=== PATIENT | female | born 1980 | race Caucasian/White ===

== ENCOUNTER 2023-04-12 15:13 | Outpatient (CLI) | payer BC, SELFPAY ==
--- NOTE | 2023-04-12 15:20 | CRLHL7_ITS ---
For Patients: As a result of the Century Cures Act, medical imaging exams and procedure reports are released immediately into your electronic medical record. You may view this report before your referring provider. If you have questions, please contact your health care provider. BILATERAL DIGITAL SCREENING MAMMOGRAM WITH TOMOSYNTHESIS AND COMPUTER-AIDED DETECTION CLINICAL HISTORY: Routine screening exam. COMPARISON: None TECHNIQUE: Digital mammogram in CC and MLO projections including computer-aided detection (CAD). Tomosynthesis utilized. BREAST COMPOSITION: There are areas of scattered fibroglandular density. FINDINGS: RIGHT Breast: Nodular density is present within the lower outer quadrant 7 cm from the nipple. LEFT Breast: No suspicious findings. IMPRESSION: RIGHT breast asymmetry/mass. RECOMMENDATIONS: Additional mammographic views of the RIGHT breast including 3D spot compression CC/MLO. RIGHT breast ultrasound may also be required. BI-RADS Category 0: Incomplete: Need Additional Imaging Evaluation and/or Prior Mammograms for Comparison [facility] will contact the patient for follow-up. A lay language report of this examination will be provided to the patient. Dictated by Servando Proctor MD @ 04/13/2023 9:24:30 AM jj/Dictated by: Servando Proctor MD @ 04/13/2023 9:24:00 AM (Electronically Signed)
== END 2023-04-12 15:14 | disposition home or self-care (01) ==
LOC: MAMMO 15:14
PROVIDERS: PCP Nurse Practitioner Family; Visit Provider Nurse Practitioner Family
DX: Z12.31 Encounter for screening mammogram for malignant neoplasm of breast (principal); N63.10 Unspecified lump in the right breast, unspecified quadrant
CPT/HCPCS: 77063; 77067

== ENCOUNTER 2023-04-17 09:34 | Outpatient (CLI) | payer BC, SELFPAY ==
--- NOTE | 2023-04-17 09:45 | CRLHL7_ITS ---
For Patients: As a result of the Cures Act, medical imaging exams and procedure reports are released immediately into your electronic medical record. You may view this report before your referring provider. If you have questions, please contact your health care provider. DIGITAL DIAGNOSTIC RIGHT MAMMOGRAM USING TOMOSYNTHESIS AND COMPUTER-AIDED DETECTION RIGHT BREAST ULTRASOUND CLINICAL HISTORY: RIGHT breast mass/asymmetry. COMPARISON: 04/12/23. TECHNIQUE: Digital RIGHT mammogram in two projections. Tomosynthesis and CAD utilized. Real-time ultrasound imaging of RIGHT breast with imaging documentation. BREAST COMPOSITION: There are areas of scattered fibroglandular density. FINDINGS: 3D CC/MLO spot compression RIGHT breast mammogram images submitted. Persistent nodular density noted without architectural distortion. No suspicious calcifications. Targeted RIGHT breast ultrasound 7 o`clock 7 cm from the nipple performed. Circumscribed hypoechoic nodule performed at mid depth measuring 11 x 6 x 6 cm. IMPRESSION: Indeterminate solid nodule RIGHT breast 7 o`clock 7 cm from the nipple measuring 11 mm. RECOMMENDATIONS: Ultrasound-guided biopsy. Results and recommendations discussed with the patient. BI-RADS Category 4: Suspicious A lay language report of this examination will be provided to the patient. Dictated by Servando Proctor MD @ 04/18/2023 1:04:40 PM safiaj/Dictated by: Servando Proctor MD @ 04/18/2023 1:04:00 PM (Electronically Signed)
--- NOTE | 2023-04-17 10:15 | CRLHL7_ITS ---
For Patients: As a result of the Cures Act, medical imaging exams and procedure reports are released immediately into your electronic medical record. You may view this report before your referring provider. If you have questions, please contact your health care provider. PLEASE SEE DIGITAL DIAGNOSTIC RIGHT MAMMOGRAM PERFORMED SAME DAY CRL:[email or web address] daily/Dictated by: Servando Proctor MD @ 04/18/2023 1:04:00 PM (Electronically Signed)
== END 2023-04-17 09:35 | disposition home or self-care (01) ==
LOC: MAMMO 09:34
PROVIDERS: PCP Nurse Practitioner Family; Visit Provider Nurse Practitioner Family
DX: N63.10 Unspecified lump in the right breast, unspecified quadrant (principal); R92.8 Other abnormal and inconclusive findings on diagnostic imaging of breast
CPT/HCPCS: 76642; 77065; G0279

== ENCOUNTER 2023-04-23 10:09 | Outpatient (CLI) | payer BC, SELFPAY ==
--- NOTE | 2023-04-23 10:15 | CRLHL7_ITS ---
For Patients: As a result of the Century Cures Act, medical imaging exams and procedure reports are released immediately into your electronic medical record. You may view this report before your referring provider. If you have questions, please contact your health care provider. ULTRASOUND-GUIDED BREAST BIOPSY AND POST-BIOPSY DIGITAL MAMMOGRAM FOR BIOPSY MARKER PLACEMENT CLINICAL HISTORY: Indeterminate solid nodule RIGHT breast. COMPARISON STUDIES: 04/17/2023. TECHNIQUE: Real-time ultrasound with image documentation was used for targeting the breast lesion. Core biopsy specimens were obtained using an automated gun with an 18-gauge biopsy needle. Post-biopsy CC and ML digital mammograms were obtained to document position of the biopsy marker. CONSENT and TIME OUT: The procedure, risks, and alternatives were explained to the patient and a consent was signed. Tyler Protocol was followed including pre-procedure verification that relevant information/documentation was available, reviewed and properly matched to the patient; consent accurate and complete; and equipment and supplies available. Time Out was conducted just prior to starting procedure to verify the four required elements: patient identity, correct side/site marked (if applicable), procedure, relevant images/results properly labeled and displayed (if applicable). PROCEDURE: The patient was positioned supine on the ultrasound table. The breast was prepped with ChloraPrep. 5 cc of 1 percent lidocaine used for local anesthesia. Core samples were obtained. A sterile metal biopsy clip was placed percutaneously to jane the lesion position within the breast. The specimens were placed in 10% formalin and sent to the pathology department. Pressure was held on the biopsy site until all bleeding subsided. The skin incision was closed with Steri-Strips. An ice pack was positioned over the biopsy site. Post-biopsy instructions were reviewed with the patient, and a written copy was given to her. LATERALITY: RIGHT breast. LESION: Hypoechoic solid nodule measuring 1.1 x 0.6 x 0.6 cm at 7 o`clock 7 cm from the nipple. SUSPICION FOR MALIGNANCY: Moderate. NUMBER OF SAMPLES: 5. BIOPSY CLIP SHAPE: Oval. PROXIMITY OF CLIP TO TARGET: Within the lesion. IMPRESSION: Ultrasound-guided breast biopsy. When the pathology report is available, an addendum to this report will be made. 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 This is concordant. Resume annual BILATERAL screening mammography. Dictated by: Servando Proctor MD @04/26/2023 10:36:14 AM / SHAN:abimbola (Electronically Signed)
--- NOTE | 2023-04-23 11:00 | CRLHL7_ITS ---
For Patients: As a result of the Century Cures Act, medical imaging exams and procedure reports are released immediately into your electronic medical record. You may view this report before your referring provider. If you have questions, please contact your health care provider. PLEASE SEE ULTRASOUND-GUIDED RIGHT BREAST BIOPSY PERFORMED SAME DAY CRL:[email or web address] daily/Dictated by: Servando Proctor MD @ 04/23/2023 12:01:00 PM (Electronically Signed)
== END 2023-04-23 10:10 | disposition home or self-care (01) ==
PROVIDERS: PCP Nurse Practitioner Family; Visit Provider Nurse Practitioner Family
DX: N63.10 Unspecified lump in the right breast, unspecified quadrant (principal); D24.1 Benign neoplasm of right breast; R92.8 Other abnormal and inconclusive findings on diagnostic imaging of breast
CPT/HCPCS: 19083; 77065; 88305; A4648; A4649

== ENCOUNTER 2024-02-29 10:38 | Outpatient (CLI) | payer BC, SELFPAY | END 2024-02-29 10:39 | disposition home or self-care (01) | PROVIDERS: PCP Nurse Practitioner Family; Visit Provider Nurse Practitioner Family | DX: Z00.00 Encounter for general adult medical examination without abnormal findings (principal); E78.5 Hyperlipidemia, unspecified; E55.9 Vitamin D deficiency, unspecified; N93.8 Other specified abnormal uterine and vaginal bleeding; Z13.1 Encounter for screening for diabetes mellitus; Z13.0 Encounter for screening for diseases of the blood and blood-forming organs and certain disorders involving the immune mechanism | CPT/HCPCS: 80061; 82306; 82947; 84443; 85025 ==

== ENCOUNTER 2024-04-23 11:17 | Outpatient (CLI) | payer BC, SELFPAY ==
--- OUTSIDE RECORDS SUMMARY | 2024-04-23 11:20 | XMS_ITS | Clinical Summary ---
Author Organization [employer] [facility] Address [place], [place] [address] Care Team Providers Care Observatory Director Name Role Phone Unavailable Primary Care Provider Unavailabl e Allergies Active Allergy Reactions Criticality Noted Date Comments Oxycodone Hives,Dizziness,Naus ea Only,Other - Describe In Comment Field 06/13/2014 Nausea and Vomit Scopolamine Hbr Other - Describe In Comment Field Low 02/08/2018 Red spots on face after scopolamine placed Medications Medication Sig Dispensed Refills Start Date End Date Status acetaminophen (TYLENOL EXTRA STRENGTH ORAL) Take by mouth. Active benzonatate (TESSALON) 200 mg capsuleIndications:C ough, unspecified type Take 1 Capsule (200 mg) by mouth 3 times daily if needed for Cough. 21 Capsule 07/23/2022 Active albuterol HFA (PRO-AIR; VENTOLIN; PROVENTIL) 90 mcg/actuation inhalerIndications:C ough, unspecified type Inhale 1-2 Puffs by mouth every 4 hours if needed for Shortness Of Breath. 1 Each 07/23/2022 Active citalopram (CELEXA) 20 mg tabletIndications:De pression, recurrent (HC) TAKE 1 TABLET(20 MG) BY MOUTH EVERY MORNING 30 Tablet 02/08/2023 Active Active Problems Problem Noted Date Diagnosed Date Pap smear for cervical cancer screening Overview: Plan: Pap/HPV due 12/2026 Immunizations Name Administration Dates Next Due Influenza Virus, Unspecified 09/07/2017 TD, UNSPECIFIED 09/20/2017 Tdap 09/20/2017,10/29/2015,12/07/2009 Tetanus Toxoid 12/07/2009,2000 Family History Medical History Relation Name Comments Hypertension Father Heart attack Maternal Grandfather Schizophrenia Maternal Grandmother Hypertension Mother Schizophrenia Mother stable with me ds Other Paternal Grandfather brain t umor Diabetes No Family History Relation Name Status Comments Brother Alive Father Alive Maternal Grandfather Maternal Grandmother Mother Alive Paternal Grandfather Paternal Grandmother Social History Tobacco Use Types Packs/Day Years Used Date Smoking Tobacco: Never Smokeless Tobacco: Never Alcohol Use Standard Drinks/Week Comments Not Currently 0 (1 standard drink = 0.6 oz pur e alcohol) PHQ-2 Answer Date Recorded PHQ-2 TOTAL SCORE 0 12/29/2021 Social Connections Answer Date Recorded Frequency of Communication with Friends and Fami ly Not on file 09/10/2021 Financial Resource Strain Answer Date R ecorded Difficulty of Paying Living Expenses Not on file 09/10/2021 Difficulty of Paying Living Expenses Not on file 09/10/2021 Sex and Gender Information Value Date Recorded Sex Assigned at Not on file Gender Identity Not on file Sexual Orientation Not on file Obstetrics History Para Term AB IAB SAB Ectopic Multiple Livin g Live Births 1 Date Outcome GA Total Labor Labor/2nd/3rd Weight Sex Type Anes PTL Brenda A1 A5 Name Clin Last Filed Vital Signs Vital Sign Reading Time Taken Comments Blood Pressure 146/65 08/02/2022 7:16 PM LMFT Pulse 93 08/02/2022 7:16 PM LMFT Temperature 36.7 ??C (98 ??F) 08/02/2022 7:16 PM LMFT Respiratory Rate 20 08/02/2022 7:16 PM LMFT Oxygen Saturation 98% 08/02/2022 7:16 PM LMFT Inhaled Oxygen Concentration - - Weight 109.3 kg (241 lb) 08/02/2022 7:16 PM LMFT Height 178.4 cm (5' 10.25) 12/29/2021 8:49 AM C DT Body Mass Index 34.33 12/29/2021 8:49 AM CDT Plan of Treatment Health Maintenance Due Date Last Done Comments HIV for age 15-65 1997 Hepatitis C screening for age 18-79 2000 BMI (ht and wt on same day) for age 18+ 12/29/2022 12/29/2021, 11/26/2020, 11/26/2018 Depression screening for age 12+ 12/29/2022 12/29/2021, 11/26/2020 COVID-19 vaccine series ( season) 2023 11/11/2021, 04/13/2021, 03/16/2021 Influenza for age 9-49 05/11/2024 09/07/2017 Pap test for age 21-65 12/29/2026 12/29/2021, 2021 Tetanus booster 09/20/2027 09/20/2017, 09/10, 10/29/2015, Additional history exists Tdap Completed 09/20/2017, 10/11, 12/07/2009 Pneumococcal series for age 6-64 Aged Out No longer eligible based on patient's age to complete this topic Procedures Procedure Name Priority Date/Time Associated Diagnosis Comments HPV THIN PREP Routine 12/29/2021 9:40 AM CDT Screening for cervical cancer from Last 3 Months or Most Recently Relevant to Health Maintenance Results * HPV HIGH RISK (12/29/2021 9:40 AM CDT) TYPE 16 Negative Negative 01/03/2022 11:59 AM CDT [facility] TYPE 18 Negative Negative 01/03/2022 11:59 AM CDT [facility] OTHER HIGH RISK TYPES Negative Negative 01/03/2022 11:59 AM CDT [facility] Other (Cervical) Non-Blood / Unknown 12/29/2021 9:40 AM CDT 12/30/2021 8:44 AM CDT Narrative [facility] 01/03/2022 11:59 AM CDT HPV types 16, 18, 31, 33, 35, 39, 45, 51, 52, 56, 58, 59, 66 and 68 DNA were undetectable or below the pre-set threshold. Methodology: [place] 4800 HPV Test Amilcar Farfan DO MICROBIOLOGY [facility] [address] [place] [address], from Last 3 Months or Most Recently Relevant to Health Maintenance
--- NOTE | 2024-04-23 11:30 | CRLHL7_ITS ---
For Patients: As a result of the Cures Act, medical imaging exams and procedure reports are released immediately into your electronic medical record. You may view this report before your referring provider. If you have questions, please contact your health care provider. BILATERAL SCREENING MAMMOGRAM WITH COMPUTER-AIDED DETECTION AND TOMOSYNTHESIS TECHNIQUE: CC and MLO views were obtained. These mammographic images have been obtained using full-field digital technique. These mammographic images were interpreted with the benefit of computer-aided detection. Breast Tomosynthesis was used in this interpretation. COMPARISON FILM: 04/12/2023. FINDINGS: There are scattered areas of fibroglandular density IMPRESSION: There is no radiographic evidence for malignancy. ASSESSMENT: BI-RADS Category 2: Benign RECOMMENDATION: Routine screening mammogram in 1 year. A lay language report of this examination will be provided to the patient. Servando Proctor M.D. Diagnostic Radiologist [email or web address] JOSE LUIS/[email or web address] Transcribed: 5:59 p.vonnie daily/Dictated by: Servando Proctor MD @ 04/24/2024 10:29:00 AM (Electronically Signed)
== END 2024-04-23 11:18 | disposition home or self-care (01) ==
LOC: MAMMO 11:18
PROVIDERS: PCP Nurse Practitioner Family; Visit Provider Nurse Practitioner Family
DX: Z12.31 Encounter for screening mammogram for malignant neoplasm of breast (principal)
CPT/HCPCS: 77063; 77067

== ENCOUNTER 2025-03-02 08:10 | Outpatient (CLI) | payer BC, SELFPAY ==
--- OUTSIDE RECORDS SUMMARY | 2025-03-03 00:36 | XMS_ITS | Clinical Summary ---
Author Organization [facility] Address [address] [place] [id number] Care Team Providers Care Home Health Caregiver Name Role Phone Unavailable Primary Care Provider Unavailabl e Allergies Active Allergy Reactions Criticality Noted Date Comments Oxycodone Hives,Dizziness,Naus ea Only,Other - Describe In Comment Field 06/13/2014 Nausea and Vomit Scopolamine Hbr Other - Describe In Comment Field Low 02/08/2018 Red spots on face after scopolamine placed Medications acetaminophen (TYLENOL EXTRA STRENGTH ORAL) Take by mouth. Active benzonatate (TESSALON) 200 mg capsuleIndicatio ns:Cough, unspecified type Take 1 Capsule (200 mg) by mouth 3 times daily if needed for Cough. 21 Capsule 2 Active albuterol HFA (PRO-AIR; VENTOLIN; PROVENTIL) 90 mcg/actuation inhalerIndicatio ns:Cough, unspecified type Inhale 1-2 Puffs by mouth every 4 hours if needed for Shortness Of Breath. 1 Each 2 Active citalopram (CELEXA) 20 mg tabletIndication s:Depression, recurrent TAKE 1 TABLET(20 MG) BY MOUTH EVERY MORNING 30 Tablet 3 Active Active Problems Problem Noted Date Diagnosed Date Pap smear for cervical cancer screening Overview (01/29/2022): Plan: Pap/HPV due 12/2026 Immunizations Immunization Administration Dates Next Due Influenza Virus, Unspecified [...] Paying Living Expenses Not on file 09/10/2021 Comments No Sex and Gender Information Value Date Recorded Sex Assigned at Not on file Legal Sex Female 7:08 AM CDT Gender Identity Not on file Sexual Orientation Not on file Obstetrics History Para Term AB IAB SAB Ectopic Multiple Livin g Live Births 1 Date Outcome GA Total Labor Labor/2nd/3rd Weight Sex Type Anes PTL Brenda A1 A5 Name Clin Last Filed Vital Signs Vital Sign Reading Time Taken Comments Blood Pressure 146/65 08/02/2022 7:16 PM IT ENGINEER Pulse 93 08/02/2022 7:16 PM IT ENGINEER Temperature 36.7 C (98 F) 08/02/2022 7:16 PM IT ENGINEER Respiratory Rate 20 08/02/2022 7:16 PM IT ENGINEER Oxygen Saturation 98% 08/02/2022 7:16 PM IT ENGINEER Inhaled Oxygen Concentration - - Weight 109.3 kg (241 lb) 08/02/2022 7:16 PM IT ENGINEER Height 178.4 cm (5' 10.25) 12/29/2021 8:49 AM C DT Body Mass Index 34.33 12/29/2021 8:49 AM CDT Plan of Treatment Health Maintenance Due Date Last Done Comments HIV for age 15-65 1997 Hepatitis C screening for age 18-79 2000 Hepatitis B series for 19+ (1 of 3 - 19+ 3-dose series) 2001 BMI (ht and wt on same day) for age 18+ 12/29/2022 12/29/2021, 11/26/2020, 11/26/2018 Depression screening for age 12+ 12/29/2022 12/29/2021, 11/26/2020 COVID-19 vaccine series ( season) 2024 11/11/2021, 04/13/2021, 03/16/2021 Influenza Vaccine (Season Ended) 2025 09/07/2017 Pap test for age 21-65 12/29/2026 12/29/2021, 2021 Tetanus booster 09/20/2027 09/20/2017, 09/10, 10/29/2015, Additional history exists Tdap Completed 09/20/2017, 10/11, 12/07/2009 Pneumococcal series for age 6-49 Aged Out No longer eligible based on patient's age to complete this topic Procedures Procedure Name Priority Date/Time Associated Diagnosis Comments HPV HIGH RISK Routine 12/29/2021 9:40 AM CDT Screening for cervical cancer from Last 3 Months or Most Recently Relevant to Health Maintenance Results * HPV HIGH RISK (12/29/2021 9:40 AM CDT) TYPE 16 Negative Negative 01/03/2022 11:59 AM CDT [facility] TYPE 18 Negative Negative 01/03/2022 11:59 AM CDT [facility] OTHER HIGH RISK TYPES Negative Negative 01/03/2022 11:59 AM CDT [facility] Other (Cervical) Non-Blood / Unknown 12/29/2021 9:40 AM CDT 12/30/2021 8:44 AM CDT [facility] - 01/03/2022 11:59 AM CDT HPV types 16, 18, 31, 33, 35, 39, 45, 51, 52, 56, 58, 59, 66 and 68 DNA were undetectable or below the pre-set threshold. Methodology: [place] [address] HPV Test us Amilcar Farfan DO MICROBIOLOGY Final Res ult [facility] [address] [place] [address], from Last 3 Months or Most Recently Relevant to Health Maintenance Insurance [facility] [place]
== END 2025-03-02 08:11 | disposition home or self-care (01) ==
PROVIDERS: PCP Nurse Practitioner Family; Visit Provider Nurse Practitioner Family
DX: E78.5 Hyperlipidemia, unspecified (principal); E55.9 Vitamin D deficiency, unspecified; Z13.21 Encounter for screening for nutritional disorder; Z13.1 Encounter for screening for diabetes mellitus
CPT/HCPCS: 80061; 82306; 82947; 84443

== ENCOUNTER 2025-04-28 18:52 | Outpatient (CLI) | payer BC, SELFPAY ==
--- NOTE | 2025-04-28 19:00 | CRLHL7_ITS ---
For Patients: As a result of the Century Cures Act, medical imaging exams and procedure reports are released immediately into your electronic medical record. You may view this report before your referring provider. If you have questions, please contact your health care provider. INDICATION: BILATERAL SCREENING MAMMMOGRAM, ASYMPTOMATIC 44 Y/O FEMALE COMPARISON: Baseline TECHNIQUE: Digital mammogram in CC and MLO projections including computer-aided detection (CAD) and tomosynthesis. BREAST COMPOSITION: The breasts are almost entirely fatty. FINDINGS: No suspicious findings. ASSESSMENT: BI-RADS 1 Negative RECOMMENDATION: Annual screening mammogram. A lay language report of this examination will be provided to the patient. Dictated by: Carmenza St MD @ 04/29/2025 11:17:59 (Electronically Signed)
== END 2025-04-28 18:53 | disposition home or self-care (01) ==
LOC: MAMMO 18:52
PROVIDERS: PCP Nurse Practitioner Family
DX: Z12.31 Encounter for screening mammogram for malignant neoplasm of breast (principal)
CPT/HCPCS: 77063; 77067